=== PATIENT | female | born 1955 | race Caucasian/White ===

== ENCOUNTER → 2018-07-12 13:08 | Outpatient (CLI) | payer OTHER, SELFPAY ==
--- NOTE | 2018-07-12 | DI.MG.S_ITS ---
BILATERAL DIGITAL SCREENING MAMMOGRAM 3D/2D WITH CAD: 07/12/2018 CLINICAL: Routine screening. Family history of breast cancer. Comparison is made to exams dated: 07/17/2016 mammogram, 07/15/2015 mammogram, and 10/13/2005 mammogram - [facility]. The tissue of both breasts is predominantly fatty. Current study was also evaluated with a Computer Aided Detection (CAD) system. No significant masses, calcifications, or other findings are seen in either breast. There has been no significant interval change. IMPRESSION: NEGATIVE There is no mammographic evidence of malignancy. A 1 year screening mammogram is recommended. This exam was interpreted at Station ID: [id number]. NOTE: For mammograms, a report in lay terms will be sent to the patient. Approximately 15% of breast malignancies will not be visualized mammographically. In the management of a palpable breast mass, a negative mammogram must not discourage biopsy of a clinically suspicious lesion. Electronically Signed By: Selena corbin/anastacia:07/12/2018 15:54:37 letter sent: Normal Exam ACR BI-RADS Category 1: Negative [id number]
== END ==
PROVIDERS: PCP Physician Assistant; Visit Provider Physician Assistant
DX: Z12.31 Encounter for screening mammogram for malignant neoplasm of breast (principal); Z80.3 Family history of malignant neoplasm of breast
CPT/HCPCS: 77063; 77067

== ENCOUNTER → 2018-10-11 09:55 | Outpatient (CLI) | payer OTHER, SELFPAY | PROVIDERS: PCP Internal Medicine; Visit Provider Physician Assistant | DX: M85.851 Other specified disorders of bone density and structure, right thigh (principal); Z78.0 Asymptomatic menopausal state; Z82.62 Family history of osteoporosis; Z87.891 Personal history of nicotine dependence | CPT/HCPCS: 77080; 77081 ==

== ENCOUNTER → 2020-05-07 10:33 | Outpatient (CLI) | payer OTHER, SELFPAY ==
--- NOTE | 2020-05-07 | DI.RAD.S_ITS ---
PROCEDURE: XR WRIST RT MIN 3V INDICATIONS: right wrist pain TECHNIQUE: 4 views of the wrist were acquired. COMPARISON: None. FINDINGS: Bones: No fractures or dislocations. No suspicious bony lesions. Mild degenerative joint disease at the triscaphe joint, 1st carpometacarpal joint, 1st metacarpophalangeal joint and 1st interphalangeal joint. Scaphoid view: Scaphoid is intact. Soft tissues: No suspicious soft tissue calcifications. IMPRESSION: Mild degenerative joint disease. Dictated by: Carolina Savage M.D. on 05/07/2020 at 17:38 Approved by: Carolina Savage M.D. on 05/07/2020 at 17:40
== END ==
PROVIDERS: PCP Internal Medicine; Referring Provider Student in an Organized Health Care Education/Training Program; Visit Provider Student in an Organized Health Care Education/Training Program
DX: M25.531 Pain in right wrist (principal); M19.031 Primary osteoarthritis, right wrist
CPT/HCPCS: 73110

== ENCOUNTER → 2020-11-30 11:38 | Outpatient (CLI) | payer OTHER, SELFPAY ==
--- NOTE | 2020-11-30 11:43 | DI.RAD.S_ITS ---
PROCEDURE: XR HIP W PEL IF DONE LT 2V INDICATIONS: LT HIP PAIN/DYSPNEA TECHNIQUE: AP pelvis with lateral view(s) of the left hip(s). COMPARISON: [facility], , HIP 2V LEFT, 01/08/2013, 9:57. FINDINGS: Bones: Patient is status post prior fixation of left proximal femur with intramedullary lj and dynamic screw in place. No gross hardware loosening or failure. No acute fractures or dislocations. Mild to moderate bilateral hip joint osteoarthritis is seen slightly worse on the left side. No evidence of avascular necrosis of femoral head. Pelvic ring appears intact. No suspicious bony lesions. Soft tissues: The visualized bowel gas pattern is normal. No suspicious soft tissue calcifications. IMPRESSION: Prior fixation of left femoral shaft with healed proximal femoral shaft fracture. No gross hardware complication. Left worse than right bilateral hip joint osteoarthritis. No evidence of avascular necrosis of femoral head. Dictated by: Onesimo West M.D. on 11/30/2020 at 14:51 Approved by: Onesimo West M.D. on 11/30/2020 at 14:52
--- NOTE | 2020-11-30 11:43 | DI.RAD.S_ITS ---
PROCEDURE: XR CHEST 2V INDICATIONS: Dyspnea TECHNIQUE: 2 views of the chest were acquired. COMPARISON: None. FINDINGS: Surgical changes and devices: None. Lungs and pleura: Lungs are clear. No pleural effusions or pneumothorax. Mediastinum: Mediastinal contours are normal. Heart size is normal. Bones and chest wall: No suspicious bony abnormalities. Soft tissues appear unremarkable. IMPRESSION: No acute cardiopulmonary process demonstrated radiographically. Dictated by: Alexander Reynolds M.D. on 11/30/2020 at 13:21 Approved by: Alexander Reynolds M.D. on 11/30/2020 at 13:22
[2020-11-30 13:30] LABS: Vitamin D 25 Hydroxy (D3) 46.8 ng/mL (30.0-100.0)
== END ==
PROVIDERS: PCP Internal Medicine; Referring Provider Student in an Organized Health Care Education/Training Program; Visit Provider Student in an Organized Health Care Education/Training Program
DX: M25.552 Pain in left hip (principal); M16.0 Bilateral primary osteoarthritis of hip; R06.00 Dyspnea, unspecified
CPT/HCPCS: 36415; 71046; 73502; 82306

== ENCOUNTER → 2021-05-23 08:01 | Outpatient (CLI) | payer OTHER, SELFPAY ==
[2021-05-23 09:31] LABS: Hemoglobin 14.3 g/dL (12.0-16.0); Mean Corpuscular HGB Conc 34.1 % (30-36); Mean Corpuscular Hemoglobin 30.5 PG (26-34); Mean Corpuscular Volume 89.6 fL (80-100); Platelet Count 232 X10^3/uL (150-400); Red Blood Cell Count 4.69 X10^6/uL (4.0-5.2); Red Cell Distribution Width 13.4 % (11.6-14.8)
[2021-05-23 09:40] LABS: Alanine Aminotransferase 51 IU/L (<35); Albumin 4.1 g/dL (3.5-5.0); Albumin Globulin Ratio 1.5 (1.0-2.8); Alkaline Phosphatase 78 U/L (38-126); Aspartate Aminotransferase 32 IU/L (14-36); BUN Creatinine Ratio 13.9 (6-22); Bilirubin Total 0.6 mg/dL (0.2-1.3); Blood Urea Nitrogen 10 mg/dL (7-17); Calcium 9.4 mg/dL (8.4-10.2); Carbon Dioxide 26 mmol/L (22-32); Chloride 105 mmol/L (98-107); Cholesterol 172 mg/dL (140-199); Estimated Glomerular Filt Rate > 60.0 mL/min (>60); Globulin 2.7 g/dL (1.7-4.1); Glucose 104 mg/dL (80-110); HDL Cholesterol 50 mg/dL (40-60); HEMOLYSIS < 15 (0-50); LDL Cholesterol Calculated 100 mg/dL (<100); Potassium 4.1 mmol/L (3.4-5.1); Sodium 139 mmol/L (137-145); Total Protein 6.8 g/dL (6.3-8.2); Triglycerides 110 mg/dL (35-150)
[2021-05-23 15:58] LABS: Hep C Virus Ab w/Reflex Quant NEGATIVE s/c (NEGATIVE)
== END ==
PROVIDERS: PCP Family Medicine; Referring Provider Student in an Organized Health Care Education/Training Program; Visit Provider Student in an Organized Health Care Education/Training Program
DX: Z11.59 Encounter for screening for other viral diseases (principal)
CPT/HCPCS: 36415; 80053; 80061; 85027; 86803

== ENCOUNTER → 2021-07-18 12:53 | Outpatient (CLI) | payer OTHER, SELFPAY ==
[2021-07-18 15:45] LABS: Alanine Aminotransferase 42 IU/L (<35); Albumin 4.8 g/dL (3.5-5.0); Albumin Globulin Ratio 1.8 (1.0-2.8); Alkaline Phosphatase 82 U/L (38-126); Aspartate Aminotransferase 32 IU/L (14-36); BUN Creatinine Ratio 15.1 (6-22); Bilirubin Total 0.9 mg/dL (0.2-1.3); Blood Urea Nitrogen 11 mg/dL (7-17); C-Reactive Protein Quant < 0.5 mg/dL (<1.0); Calcium 9.7 mg/dL (8.4-10.2); Carbon Dioxide 27 mmol/L (22-32); Chloride 103 mmol/L (98-107); Estimated Glomerular Filt Rate > 60.0 mL/min (>60); Globulin 2.7 g/dL (1.7-4.1); Glucose 96 mg/dL (80-110); HEMOLYSIS < 15 (0-50); Potassium 4.1 mmol/L (3.4-5.1); Sodium 137 mmol/L (137-145); Total Protein 7.5 g/dL (6.3-8.2)
[2021-07-18 15:57] LABS: Free T3, Triiodothyronine Free 3.24 pg/mL (2.77-5.27); Free T4, Direct Thyroxine 1.06 ng/dL (0.78-2.19)
[2021-07-18 16:10] LABS: Thyroid Stimulating Hormone 1.28 uIU/mL (0.47-4.68)
[2021-07-18 16:17] LABS: Ferritin 61 ng/mL (11-264)
[2021-07-18 16:43] LABS: Vitamin D 25 Hydroxy (D3) 47.9 ng/mL (30.0-100.0)
[2021-07-19 18:50] LABS: Anti Thyroglobulin Antibody <1.0 IU/mL (0.0-0.9); Thyroid Peroxidase Antibodies <8 IU/mL (0-34)
[2021-07-22 10:21] LABS: Percent Free Testosterone 1.56 % (0.50-2.80); Testosterone Total 32.2 ng/dL (7.0-40.0)
[2021-07-28 18:03] LABS: % Free Progesterone 2.7 % (.); Free Progesterone <0.27 ng/dL (.); Progesterone, Serum <10 ng/dL (.)
== END ==
PROVIDERS: PCP Family Medicine; Referring Provider Family Medicine; Visit Provider Family Medicine
DX: E55.9 Vitamin D deficiency, unspecified (principal); F41.9 Anxiety disorder, unspecified; F51.04 Psychophysiologic insomnia; R42 Dizziness and giddiness; Z13.29 Encounter for screening for other suspected endocrine disorder; Z86.2 Personal history of diseases of the blood and blood-forming organs and certain disorders involving the immune mechanism
CPT/HCPCS: 36415; 80053; 82306; 82627; 82728; 84144; 84402; 84403; 84439; 84443; 84481; 84999; 86140; 86376; 86800

== ENCOUNTER → 2021-10-26 09:26 | Outpatient (CLI) | payer OTHER, SELFPAY ==
[2021-10-26 11:40] LABS: Alanine Aminotransferase 23 IU/L (<35); Albumin 4.6 g/dL (3.5-5.0); Albumin Globulin Ratio 1.6 (1.0-2.8); Alkaline Phosphatase 77 U/L (38-126); Aspartate Aminotransferase 29 IU/L (14-36); Bilirubin Total 1.1 mg/dL (0.2-1.3); Blood Urea Nitrogen 12 mg/dL (7-17); C-Reactive Protein Quant < 0.5 mg/dL (<1.0); Calcium 9.3 mg/dL (8.4-10.2); Carbon Dioxide 29 mmol/L (22-32); Chloride 103 mmol/L (98-107); Estimated Glomerular Filt Rate > 60 mL/min (>60); Gamma Glutamyl Transpeptidase 14 U/L (12-43); Globulin 2.9 g/dL (1.7-4.1); Glucose 104 mg/dL (80-110); HEMOLYSIS < 15 (0-50); Potassium 4.1 mmol/L (3.4-5.1); Sodium 138 mmol/L (137-145); Total Protein 7.5 g/dL (6.3-8.2)
[2021-10-26 11:54] LABS: Vitamin D 25 Hydroxy (D3) 60.4 ng/mL (30.0-100.0)
[2021-10-26 12:12] LABS: Ferritin 56 ng/mL (11-264)
== END ==
PROVIDERS: PCP Family Medicine; Referring Provider Family Medicine; Visit Provider Family Medicine
DX: D89.40 Mast cell activation, unspecified (principal); E55.9 Vitamin D deficiency, unspecified; G43.909 Migraine, unspecified, not intractable, without status migrainosus; Z77.120 Contact with and (suspected) exposure to mold (toxic); Z86.2 Personal history of diseases of the blood and blood-forming organs and certain disorders involving the immune mechanism
CPT/HCPCS: 36415; 80053; 82306; 82728; 82977; 86140; 86160

== ENCOUNTER → 2021-11-07 13:40 | Outpatient (CLI) | payer OTHER, MEDICARE, SELFPAY ==
[2021-11-07 15:39] LABS: COVID19 -Nasal RAPID Negative (Negative)
== END ==
PROVIDERS: PCP Family Medicine; Visit Provider Surgery
DX: Z20.822 Contact with and (suspected) exposure to COVID-19 (principal); Z01.812 Encounter for preprocedural laboratory examination
CPT/HCPCS: 87635; C9803

== ENCOUNTER 2021-11-08 07:05 | Day surgery (SDC) | payer OTHER, SELFPAY ==
--- NOTE | 2021-11-08 | PATH_ITS ---
[facility] Accession Number: [id number] . 01 Material submitted: . cecum - CECAL COLON POLYP . 01 Diagnosis: Cecal Polyp, Biopsy: Tubular adenoma. MRV 11/11/2021 1228 Local . 01 Electronically signed: . Delmar Simmons MD, PhD, Pathologist NPI- [id number] . 01 Gross description: . CECAL COLON POLYP: Received in formalin is 1 fragment(s) of dozier, soft tissue measuring 0.4 x 0.2 x 0.1 cm submitted entirely in 1 cassette(s) /MWS 11/09/2021 0725 Local . 01 Pathologist provided ICD-10: D12.0 . 01 CPT . 177823 Performed at: 01 [facility] [address] [place] [address] [id number] MD Jose Armando Sanders MD Phone: [phone]
[2021-11-08 07:32] VITALS: BP 94/65; PULSE 79; RESP 16; TEMP 36.4; O2SAT 98; BMI 32.6
[2021-11-08] MEDS: LACTATED RINGERS 1,000 ML 42 ML IV (07:53)
--- NOTE | 2021-11-08 08:16 | PM.HP.1 ---
History of Present Illness History of Present Illness Date Patient Seen: 11/08/21 Time Patient Seen: 08:16 Chief complaint: SDC Narrative: The patient presents for colorectal screening. She has a personal history of colonic polyps, last colonoscopy 5 years ago.. No personal or family history of colon cancer. On further history denies any recent gastrointestinal symptoms. No nausea, vomiting, abdominal pain, loss of appetite, unexplained weight loss, change in bowel habits, diarrhea, constipation, melena, hematochezia, or bright red blood per rectum. Patient History Medical History Anxiety (~2009) Cervical somatic dysfunction Chicken pox (~1959) Chronic back pain (~1997) Cranial somatic dysfunction Depression (~1999) Fractures (~2010) Headache Hearing loss Insomnia Mast cell activation syndrome Measles (~1961) Medication adverse effect Migraines Mold exposure Nausea alone Obstructive sleep apnea Plantar fasciitis, bilateral Screening for thyroid disorder Stiff neck Thoracic region somatic dysfunction Tinnitus Upper extremity somatic dysfunction Vertigo Vitamin D deficiency Surgical History Anesthesia History of cataract removal with insertion of prosthetic lens (~2018) History of ear surgery (~1960) History of hip surgery (~2010) History of knee surgery (~2013) History of tonsillectomy (~1960) Family & Social History Family History Mother Cancer Diabetes mellitus Hypertension Brother Diabetes mellitus COPD (chronic obstructive pulmonary disease) Grandfather Diabetes mellitus Social History: household members spouse Tobacco & Substance use: Smoking Status Former smoker alcohol intake former Substance Use Type does not use Meds Home Medications and Allergies Home Medications Medication Instructions Recorded Confirmed Type famotidine 20 mg tablet (Pepcid) 20 mg PO DAILY 03/30/21 11/08/21 History loratadine 10 mg tablet (Claritin) 10 mg PO DAILY 03/30/21 11/08/21 History ondansetron 4 mg disintegrating 4 mg PO Q8H PRN nausea and 05/31/21 11/08/21 Rx tablet vomiting #14 tabs alprazolam 0.5 mg tablet 0.5 mg PO BID PRN anxiety #20 tabs 10/11/21 11/08/21 Rx Allergies Allergy/AdvReac Type Severity Reaction Status Date / Time ASPIRIN Allergy Severe ANAPHALAXIS Uncoded 11/08/21 07:26 NIACIN Allergy Severe THROAT Uncoded 07/29/21 10:24 SWELLING ADHESIVE TAPE Allergy Mild RASH Uncoded 07/29/21 10:24 COBAN Allergy Mild RASH Uncoded 07/29/21 10:24 LACTOSE Allergy Mild DIARRHEA Uncoded 07/29/21 10:24 Exam Vital Signs (past 8 hours): - 11/08/21 07:32 Temperature 97.5 F L Pulse Rate 79 Respiratory Rate 16 Blood Pressure 94/65 Pulse Oximetry 98 Oxygen Delivery Method Room Air Oxygen Delivery Method Room Air Narrative Exam Narrative: General adult woman alert oriented no acute distress Chest nonlabored respirations Extremities warm well perfused Assessment & Plan Assessment & Plan narrative: The patient requires colorectal screening and colonoscopy is recommended. Technical details were discussed. Risks, benefits, alternatives explained. Risks including but not limited to myocardial infarction, aspiration, bleeding, pain, missed lesion, incomplete examination, need for further radiographic studies, colonic perforation, and need for major abdominal surgery were discussed. All questions were answered to their satisfaction, and they are in agreement with this plan. Time Spent With Patient Critical Care time: I spent a total of [] minutes of critical care time on this patient's care today; this time is exclusive of procedural time.
[2021-11-08] MEDS: MIDAZOLAM 2 MG/2 ML VIAL 7 MG IV (08:38)
[2021-11-08] MEDS: fentaNYL 250 MCG/5 ML INJ 200 MCG IV (08:38)
--- NOTE | 2021-11-08 08:49 | P.OP.COLON_ITS ---
Operative Date/Time/Diagnoses Date of procedure: 11/08/21 Time of procedure: 08:49 Pre-op diagnosis: Personal history of colonic polyps Post-op diagnosis: same Procedure & Clinicians Study performed: Colonoscopy and polypectomy Same procedure as scheduled: Yes Indications: Personal history of colonic polyps Surgeon: Chris Duong Procedure Notes Procedure in detail: Medications: Conscious sedation using 7mg IV midazolam and 200mcg IV of f entanyl The history and physical was performed/updated and the patient is ASA class is 2. The procedure was discussed in detail with the patient. Potential risks complications including infection, bleeding, missed diagnosis, perforation, need for surgery, and were explained. Their questions were answered and informed consent was obtained. Patient was brought to the procedure room and placed standard monitoring equipment. The patient's vital signs were monitored continuously throughout the entire procedure. Prior to starting time-out was performed. The patient was placed in the left lateral recumbent position. Procedural sedation was administered. Examination began with a thorough inspection of the perianal area there was no evidence of fissures, fistulae, external hemorrhoids or cutaneous malignancy. The colonoscopy scope was then placed into the anal canal and was advanced to the cecum, which was identified by the ileocecal valve, the appendiceal orifice and the confluence of the taenia. The scope was then slowly withdrawn examining colon thoroughly in all directions, irrigating it of any residual stool. FINDINGS 1. Ascending colon- 5 mm polyp removed with biopsy forceps 2. Internal hemorrhoids The patient tolerated the procedure well. They will be discharged once criteria are met. The prep was of good/excellent quality. The withdrawl time was 6 minutes. The sedation time was 16 minutes. Specimen(s): other (Ascending colon) Complications: none Impression: Colonic polyp Post-procedure Recommendations: Colonoscopy in 5 years Disposition: same day surgery
[2021-11-08 08:55] VITALS: BP 110/66; PULSE 74; RESP 16; TEMP 36.4; O2SAT 96
[2021-11-08 09:00] VITALS: BP 103/66; PULSE 71; RESP 11; TEMP 36; O2SAT 97
[2021-11-08 09:05] VITALS: BP 109/60; PULSE 80; RESP 18; TEMP 36.1; O2SAT 99
[2021-11-08 09:16] VITALS: BP 106/60; PULSE 80; RESP 23; TEMP 36.1; O2SAT 100
== END 2021-11-08 09:24 | disposition home or self-care (01) ==
PROVIDERS: PCP Family Medicine; Referring Provider Surgery; Visit Provider Surgery
PROC: 0DJD8ZZ Inspection of Lower Intestinal Tract, Via Natural or Artificial Opening Endoscopic (ICD-10-PCS; CPT 45378; principal; 2021-11-08 08:15)
DX: Z12.11 Encounter for screening for malignant neoplasm of colon (principal); D12.0 Benign neoplasm of cecum; K64.8 Other hemorrhoids; F41.9 Anxiety disorder, unspecified; G47.33 Obstructive sleep apnea (adult) (pediatric); Z86.010 Personal history of colon polyps; Z87.891 Personal history of nicotine dependence
CPT/HCPCS: 45380; 99152; J2250; J3010

== ENCOUNTER → 2021-12-27 11:55 | Outpatient (CLI) | payer OTHER, SELFPAY ==
[2021-12-27 14:06] LABS: Alanine Aminotransferase 26 IU/L (<35); Albumin 4.4 g/dL (3.5-5.0); Albumin Globulin Ratio 1.6 (1.0-2.8); Alkaline Phosphatase 68 U/L (38-126); Aspartate Aminotransferase 25 IU/L (14-36); BUN Creatinine Ratio 12.2 (6-22); Bilirubin Total 0.8 mg/dL (0.2-1.3); Blood Urea Nitrogen 10 mg/dL (7-17); Calcium 9.3 mg/dL (8.4-10.2); Carbon Dioxide 30 mmol/L (22-32); Chloride 101 mmol/L (98-107); Estimated Glomerular Filt Rate > 60 mL/min (>60); Globulin 2.7 g/dL (1.7-4.1); Glucose 76 mg/dL (80-110); HEMOLYSIS < 15 (0-50); Potassium 4.7 mmol/L (3.4-5.1); Sodium 139 mmol/L (137-145); Total Protein 7.1 g/dL (6.3-8.2)
== END ==
PROVIDERS: PCP Family Medicine; Referring Provider Family Medicine; Visit Provider Family Medicine
DX: Z13.9 Encounter for screening, unspecified (principal); T50.905A Adverse effect of unspecified drugs, medicaments and biological substances, initial encounter
CPT/HCPCS: 36415; 80053

== ENCOUNTER → 2022-02-01 15:21 | Outpatient (CLI) | payer OTHER, SELFPAY ==
[2022-02-04 14:08] LABS: ANA Screen, IFA Negative (.)
== END ==
PROVIDERS: PCP Family Medicine; Referring Provider Family Medicine; Visit Provider Family Medicine
DX: R21 Rash and other nonspecific skin eruption (principal)
CPT/HCPCS: 36415; 86038

== ENCOUNTER → 2023-06-11 07:52 | Outpatient (CLI) | payer OTHER, SELFPAY ==
[2023-06-11 08:52] LABS: Add Manual Diff / Slide Review NO; Basophils Absolute Auto 0 /uL (0-100); Basophils Percent Auto 0.9 % (0-2); Eosinophils Absolute Auto 300 /uL (0-450); Eosinophils Percent Auto 5.9 % (2-4); Hematocrit 43.4 % (36-46); Hemoglobin 14.5 g/dL (12.0-16.0); Lymphocytes Absolute Auto 1500 /uL (1100-4500); Lymphocytes Percent Auto 32.3 % (25-40); Mean Corpuscular HGB Conc 33.3 % (30-36); Mean Corpuscular Hemoglobin 29.9 PG (26-34); Mean Corpuscular Volume 89.6 fL (80-100); Monocytes Absolute Auto 400 /uL (0-900); Monocytes Percent Auto 8.3 % (3-14); Neutrophils Absolute Auto 2500 /uL (1500-7000); Neutrophils Percent Auto 52.6 % (50-75); Platelet Count 232 X10^3/uL (150-400); Red Blood Cell Count 4.84 X10^6/uL (4.0-5.2); Red Cell Distribution Width 14.2 % (11.6-14.8); White Blood Cell Count 4.8 X10^3/uL (4.5-11.0)
[2023-06-11 09:08] LABS: Alanine Aminotransferase 37 IU/L (<35); Albumin 4.3 g/dL (3.5-5.0); Albumin Globulin Ratio 1.3 (1.0-2.8); Alkaline Phosphatase 74 U/L (38-126); Aspartate Aminotransferase 35 IU/L (14-36); BUN Creatinine Ratio 14.5 (6-22); Blood Urea Nitrogen 9 mg/dL (7-17); Calcium 9.7 mg/dL (8.4-10.2); Carbon Dioxide 25 mmol/L (22-32); Chloride 105 mmol/L (98-107); Cholesterol 267 mg/dL (140-199); Estimated Glomerular Filt Rate > 60 mL/min (>60); Globulin 3.2 g/dL (1.7-4.1); Glucose 100 mg/dL (80-110); HDL Cholesterol 68 mg/dL (40-60); HEMOLYSIS 19 (0-50); LDL Cholesterol Calculated 169 mg/dL (<100); Potassium 4.1 mmol/L (3.4-5.1); Sodium 138 mmol/L (137-145); Total Protein 7.5 g/dL (6.3-8.2); Triglycerides 148 mg/dL (35-150)
[2023-06-11 09:39] LABS: Hemoglobin A1C% w Est Avg Glu 5.1 % (4.0-6.0)
[2023-06-11 09:48] LABS: Vitamin D 25 Hydroxy (D3) 56.5 ng/mL (30.0-100.0)
[2023-06-11 09:54] LABS: Vitamin B12 564 pg/mL (239-931)
== END ==
PROVIDERS: PCP Family Medicine; Referring Provider Family Medicine; Visit Provider Family Medicine
DX: D89.40 Mast cell activation, unspecified (principal); M79.2 Neuralgia and neuritis, unspecified; E55.9 Vitamin D deficiency, unspecified; Z13.220 Encounter for screening for lipoid disorders
CPT/HCPCS: 36415; 80053; 80061; 82306; 82607; 83036; 85025

== ENCOUNTER → 2023-07-31 08:50 | Outpatient (CLI) | payer OTHER, SELFPAY ==
[2023-07-31 10:16] LABS: C-Reactive Protein Quant < 0.5 mg/dL (<1.0)
[2023-08-01 12:12] LABS: Homocysteine 13.4 umol/L (0.0-17.2)
[2023-08-01 14:15] LABS: Cholesterol,Total 254
[2023-08-01 14:16] LABS: HDL Cholesterol 65
[2023-08-01 14:19] LABS: Non-HDL Cholesterol 189
[2023-08-01 14:20] LABS: Triglycerides 159
== END ==
LOC: LAB 08:51
PROVIDERS: PCP Family Medicine; Referring Provider Family Medicine; Visit Provider Family Medicine
DX: E78.00 Pure hypercholesterolemia, unspecified (principal); R09.89 Other specified symptoms and signs involving the circulatory and respiratory systems; Z91.89 Other specified personal risk factors, not elsewhere classified
CPT/HCPCS: 36415; 80061; 83090; 83704; 83721; 86140

== ENCOUNTER → 2023-09-11 12:48 | Outpatient (CLI) | payer OTHER, SELFPAY ==
--- NOTE | 2023-09-11 14:09 | DIET.OUTPTC ---
Dietary Outpatient Consultation Note Consultation Date: 09/11/2023 Assessment: 68 y F referred to dietitian for weight management. Mary Lou is looking for help with continuing to improve her cholesterol, lower added sugars in diet, and weight management. Reports she recently cut out nightshade containing foods to manage adverse reactions. Has previously been on the No BS weight loss plan (an intuitive eating style plan) and lost weight successful on that ~2 yr ago, but reports gaining the weight back. Diet recall: 1030-11a: B-2-3 c coffee, eggs and whole grain toast and 1 tbsp stick butter OR Eric's breakfast or hamburger or chicken nuggets and regular sized coke Starbucks: Coffee drink with non dairy soy or oat milk and pastry 4-5p: chicken noodle soup and grilled cheese sandwich OR hummus and crackers/chips and salad Dessert: cookies/Popsicle Beverages: Reports either coke or starbucks drink daily and between 1-4 24 oz bottles of water Allergies: Nightshade, milk/yogurt GI symptoms: acid reflux/heartburn if eats too late in evening Activity: Avg of 3x/wk water aerobics 45 mins (135 mins/wk mod intense activity) Ht: 5 ft 8 in Wt: 225 lb and 6 oz (102.228 kg) BMI: 34.2 Weight History: 08/20/23: 102.228 kg 06/08/23: 103.532 kg 11/01/22: 103.646 kg Nutrition Diagnosis: Nutrition related knowledge deficit r/t to no previous educ as evidenced by assessment Interventions: 1. Provided MNT for weight management and lipid management -including: balanced meals, recommended amounts of daily grams of saturated fat and sugar, label reading Goals: 1. Record SFA and added sugar intake and compare against reccs provided 2. Switch from stick butter to tub butter with olive oil or olive oil for toast and cooking 3. Adequate protein and fiber intake -in progress EER: HIJ baseline with 1.2 AF = 7675-9308 kcals/day (1600 kcals w/ 250 kcal deficit) *calories only used for calculation of SFA and added sugars per pt interest Saturated fat: 12-14 g saturated fat for 7% of EER Added sugars: 40-45 g added sugar for 10% of EER Protein: 80-85 g protein/day (1 g protein/kg of adjusted IBW) Monitoring/Evaluations: diet recall, SFA and added sugar intake, goals, f/u 1 month Electronically Signed by: Corinne Loyd 09/11/23 14:09 Clinical Dietitian [address] [address]
== END ==
PROVIDERS: PCP Family Medicine; Referring Provider Family Medicine
DX: E66.9 Obesity, unspecified (principal); Z71.3 Dietary counseling and surveillance; Z68.34 Body mass index [BMI] 34.0-34.9, adult; K21.9 Gastro-esophageal reflux disease without esophagitis
CPT/HCPCS: 97802

== ENCOUNTER 2023-10-10 18:27 | Emergency (ER) | payer OTHER, SELFPAY ==
[2023-10-10 18:36] VITALS: PULSE 97; RESP 16; TEMP 36.4; O2SAT 96
[2023-10-10 18:40] VITALS: BP 135/73
--- NOTE | 2023-10-10 18:40 | DI.US.S_ITS ---
PROCEDURE: US PERIPH VENOUS LOW EXTREM RT INDICATIONS: pain behind right knee and calf TECHNIQUE: Real-time imaging, as well as color and pulse Doppler interrogation, were performed of the lower extremity deep veins from the inguinal ligament to the popliteal fossa, with documentation of the visualized calf veins. COMPARISON: None. FINDINGS: The common femoral, femoral, popliteal, and the visualized calf veins are normally compressible, and free of intraluminal thrombus. Color and pulse Doppler demonstrate normal phasic intraluminal flow. There is normal augmentation response to distal compression maneuver. IMPRESSION: No findings of lower extremity deep venous thrombosis. Dictated by: Leticia Hagen M.D. on 10/10/2023 at 22:31 Approved by: Leticia Hagen M.D. on 10/10/2023 at 22:32
--- NOTE | 2023-10-10 23:00 | ED.EXTPRO ---
HPI - Extremity Problem General Chief complaint: Extremity Problem,Nontraumatic Stated complaint: rt leg pain, swelling Time Seen by Provider: 10/10/23 19:04 Source: patient Mode of arrival: Ambulatory History of Present Illness HPI Narrative: Patient is a 68-year-old female who is here for evaluation of the swelling to her right leg and discomfort that goes from the outside/back of her right hip down the back of her leg to her calf muscle. No chest pain. No shortness of breath. No trauma. She states that it is just a ?ache?. It is actually somewhat worse with walking. Related Data Previous Rx's Medication Instructions Recorded triamcinolone acetonide 0.1 % 1 applic topical DAILY PRN Vaginal 03/05/23 topical cream itching #30 grams eletriptan 40 mg tablet See Rx Instructions PO .COMPLEX 03/28/23 #20 tabs Allergies Allergy/AdvReac Type Severity Reaction Status Date / Time ibuprofen Allergy Severe Swelling Verified 10/10/23 18:40 of Lip/Tongue/Throat Solanum- Nightshade AdvReac Intermediate ITCHING Verified 10/10/23 18:39 Vegetables ASPIRIN Allergy Severe ANAPHALAXIS Uncoded 10/10/23 18:39 NIACIN Allergy Severe THROAT Uncoded 10/10/23 18:39 SWELLING ADHESIVE TAPE Allergy Mild RASH Uncoded 10/10/23 18:39 COBAN Allergy Mild RASH Uncoded 10/10/23 18:39 LACTOSE Allergy Mild DIARRHEA Uncoded 10/10/23 18:39 Review of Systems Constitutional Constitutional: Reports system reviewed and no additional complaints, except as documented Cardiovascular Cardiovascular: Reports system reviewed and no additional complaints, except as documented Respiratory Respiratory: Reports system reviewed and no additional complaints, except as documented Musculoskeletal Musculoskeletal: Reports system reviewed and no additional complaints, except as documented Integumentary/Breasts Skin/Breast: Reports system reviewed and no additional complaints, except as documented Patient History Medical History Cardiac symptoms with risk for coronary heart disease between 10% and 20% in next 10 years Pure hypercholesterolemia Generalized pruritus Peripheral neuropathic pain Malar rash Medication adverse effect Mast cell activation syndrome Mold exposure Upper extremity somatic dysfunction Thoracic region somatic dysfunction Screening for thyroid disorder Vitamin D deficiency Cervical somatic dysfunction Cranial somatic dysfunction Stiff neck Nausea alone Plantar fasciitis, bilateral Depression (~1999) Migraines Headache Fractures (~2010) Chronic back pain (~1997) Measles (~1961) Chicken pox (~1959) Vertigo Tinnitus Hearing loss Obstructive sleep apnea Insomnia Anxiety (~2009) Surgical History Anesthesia History of knee surgery (~2013) History of hip surgery (~2010) History of tonsillectomy (~1960) History of ear surgery (~1960) History of cataract removal with insertion of prosthetic lens (~2018) Family History Mother Cancer Diabetes mellitus Hypertension Brother Diabetes mellitus COPD (chronic obstructive pulmonary disease) Grandfather Diabetes mellitus Social History household members: spouse Smoking Status: Former smoker alcohol intake: former Smoking Status: Former smoker Substance Use Type: does not use Exam Initial Vital Signs Initial Vital Signs: Vital Signs Temperature 97.6 F 10/10/23 18:36 Pulse Rate 97 H 10/10/23 18:36 Respiratory Rate 16 10/10/23 18:36 Pulse Oximetry 96 10/10/23 18:36 Oxygen Delivery Method Room Air 10/10/23 18:36 Resp Effort & Inspection: normal respiratory effort Cardio Rate: regular rate Neuro Sensory Exam: no sensory deficits noted Extrem General: normal to inspection, capillary refill normal, edema and No limp Course Orders Ordered: ED Orders 10/10/23 18:40 US periph venous low extrem rt Stat Vital Signs Vital signs: Vital Signs - 8 hr 10/10/23 23:12 Pulse Rate 70 Respiratory Rate 16 Blood Pressure 123/65 Pulse Oximetry 95 Oxygen Delivery Method Room Air MDM - Extremity (Nontraumatic) Imaging Data US - DVT: Radiologist's Impression: PROCEDURE: US PERIPH VENOUS LOW EXTREM RT INDICATIONS: pain behind right knee and calf TECHNIQUE: Real-time imaging, as well as color and pulse Doppler interrogation, were performed of the lower extremity deep veins from the inguinal ligament to the popliteal fossa, with documentation of the visualized calf veins. COMPARISON: None. FINDINGS: The common femoral, femoral, popliteal, and the visualized calf veins are normally compressible, and free of intraluminal thrombus. Color and pulse Doppler demonstrate normal phasic intraluminal flow. There is normal augmentation response to distal compression maneuver. IMPRESSION: No findings of lower extremity deep venous thrombosis MDM Narrative Medical decision making narrative: Exam is not consistent with cellulitis. Not consistent with DVT. DVT ultrasound is negative. Her symptoms go from the right hip down to her foot. She has not having any back pain. I do suspect muscular. Discuss this with the patient. Discussed conservative treatment at home. She was given return precautions. She expressed understanding and agreement. Discharge Plan Departure Patient Disposition: Home Clinical Impression: Leg pain, right Instructions: DI for Leg Pain Activity Restrictions/Additional Instructions: You have no restrictions on your activities. I do recommend you try to stay as active as possible. You can take anti-inflammatory such as Motrin/ibuprofen for any discomfort. Contact your primary doctor for a follow-up. Prescriptions: No Action triamcinolone acetonide 0.1 % cream 1 applic topical DAILY PRN (Reason: Vaginal itching) Qty: 30 3RF eletriptan 40 mg tablet See Rx Instructions PO .COMPLEX Qty: 20 5RF Rx Instructions: take 1 tab at onset of headache; if no relief, may repeat 1 tab after at least 2 hrs; max = 2 tabs/24 hrs PO Referrals: Armin Mosqueda DO [Primary Care Provider] - Stand Alone Forms: Patient Portal/API
[2023-10-10 23:12] VITALS: BP 123/65; PULSE 70; RESP 16; O2SAT 95
== END 2023-10-10 23:18 | disposition home or self-care (01) ==
PROVIDERS: Emergency Provider Emergency Medicine; PCP Family Medicine
DX: M79.604 Pain in right leg (principal)
CPT/HCPCS: 93971; 99281; 99282

== ENCOUNTER → 2023-12-21 13:18 | Outpatient (CLI) | payer OTHER, SELFPAY ==
--- NOTE | 2023-12-21 13:19 | DI.MG.S_ITS ---
BILATERAL DIGITAL SCREENING MAMMOGRAM 3D/2D WITH CAD: 12/21/2023 CLINICAL: Routine screening. Family history of breast cancer. Comparison is made to exam dated: 09/05/2021 mammogram - [facility]. Both breasts are almost entirely fatty (category a/<25% glandular tissue). Current study was also evaluated with a Computer Aided Detection (CAD) system. No significant masses, calcifications, or other findings are seen in either breast. There has been no significant interval change. IMPRESSION: NEGATIVE There is no mammographic evidence of malignancy. A 1 year screening mammogram is recommended. Based on the Tyrer Cuzick model (a risk assessment model) the patient's lifetime risk is 7.2% and her 10 year risk is 4.2%. According to the ACR, ACS, and NCCN guidelines, an annual breast MRI exam along with mammogram is recommended if the patient's lifetime risk is 20% or greater. This exam was interpreted at Station ID: [id number]. NOTE: For mammograms, a report in lay terms will be sent to the patient. Approximately 15% of breast malignancies will not be visualized mammographically. In the management of a palpable breast mass, a negative mammogram must not discourage biopsy of a clinically suspicious lesion. Electronically Signed By: James pettit/anastacia:12/21/2023 16:25:29 letter sent: Normal Exam ACR BI-RADS Category 1: Negative 3341F
== END ==
PROVIDERS: PCP Family Medicine; Referring Provider Family Medicine; Visit Provider Family Medicine
DX: Z12.31 Encounter for screening mammogram for malignant neoplasm of breast (principal); Z80.3 Family history of malignant neoplasm of breast; R92.313 Mammographic fatty tissue density, bilateral breasts
CPT/HCPCS: 77063; 77067

== ENCOUNTER → 2024-08-26 14:52 | Outpatient (CLI) | payer OTHER, SELFPAY ==
--- NOTE | 2024-08-26 14:53 | DI.RAD.S_ITS ---
PROCEDURE: XR HIP W PEL IF DONE KATIE MIN 4V INDICATIONS: right hip pain - hx of OA (see XR from 2020) TECHNIQUE: AP pelvis with lateral view(s) of the left hip(s). [facility], 11/30/2020, 12:04. FINDINGS: Bones: Stable appearance of hardware within the left femoral neck and proximal femur status post open reduction internal fixation. No fractures or dislocations. Pelvic ring appears intact. No suspicious bony lesions. Soft tissues: The visualized bowel gas pattern is normal. No suspicious soft tissue calcifications. IMPRESSION: No evidence of hardware complication or acute bony abnormality status post ORIF. Dictated by: Jorgito Rubio M.D. on 08/27/2024 at 1:53 Approved by: Jorgito Rubio M.D. on 08/27/2024 at 1:54
== END ==
PROVIDERS: PCP Family Medicine; Referring Provider Physician Assistant; Visit Provider Physician Assistant
DX: M16.0 Bilateral primary osteoarthritis of hip (principal); Z98.890 Other specified postprocedural states
CPT/HCPCS: 73522

== ENCOUNTER → 2025-02-03 16:33 | Outpatient (CLI) | payer OTHER, SELFPAY ==
--- NOTE | 2025-02-03 16:36 | DI.RAD.S_ITS ---
PROCEDURE: XR CHEST 2V INDICATIONS: sob x 2 weeks TECHNIQUE: 2 views of the chest were acquired. COMPARISON: [facility], CR, XR CHEST 2V, 11/30/2020, 12:04. FINDINGS: Heart, mediastinum and pulmonary vascular: Heart is normal in size and configuration. Mediastinum is unremarkable. Pulmonary vascular is normal. Lungs: Scattered airspace disease in both lower lobes likely atelectasis Pleural spaces: Normal-no effusions or pneumothorax. Bones and soft tissues: Moderate compression fracture of the T9 vertebral body. Chronicity unknown. Mild compression fractures seen throughout remaining mid and lower thoracic vertebral bodies IMPRESSION: No acute cardiopulmonary disease Dictated by: Addison Alba M.D. on 02/04/2025 at 12:34 Approved by: Addison Alba M.D. on 02/04/2025 at 12:35
[2025-02-03 17:23] LABS: Add Manual Diff / Slide Review NO; Hematocrit 41.3 % (36-46); Hemoglobin 14.0 g/dL (12.0-16.0); Lymphocytes Absolute Auto 1400 /uL (1100-4500); Mean Corpuscular HGB Conc 33.9 % (30-36); Mean Corpuscular Hemoglobin 30.5 PG (26-34); Mean Corpuscular Volume 89.8 fL (80-100); Platelet Count 260 X10^3/uL (150-400)
[2025-02-03 18:06] LABS: Alanine Aminotransferase 28 IU/L (<35); Albumin 4.3 g/dL (3.5-5.0); Albumin Globulin Ratio 1.5 (1.0-2.8); Alkaline Phosphatase 91 U/L (38-126); Blood Urea Nitrogen 12 mg/dL (7-17); Calcium 9.3 mg/dL (8.4-10.2); Carbon Dioxide 27 mmol/L (22-32); Chloride 103 mmol/L (98-107); Estimated Glomerular Filt Rate > 60 mL/min (>60); Globulin 2.9 g/dL (1.7-4.1); Glucose 95 mg/dL (70-99); HEMOLYSIS < 15 (0-50); Potassium 4.2 mmol/L (3.4-5.1); Sodium 137 mmol/L (137-145); Total Protein 7.2 g/dL (6.3-8.2)
[2025-02-03 18:15] LABS: NT-proBNP (BNP-Adult 18+) 99 pg/mL (<125)
== END ==
PROVIDERS: PCP Family Medicine; Referring Provider Physician Assistant; Visit Provider Physician Assistant
DX: R06.02 Shortness of breath (principal)
CPT/HCPCS: 36415; 71046; 80053; 83880; 85025

== ENCOUNTER → 2025-02-18 14:39 | Outpatient (CLI) | payer OTHER, SELFPAY ==
--- NOTE | 2025-02-18 14:41 | DI.RAD.S_ITS ---
PROCEDURE: XR CERVICAL SPINE 2V OR 3V INDICATIONS: neck pain TECHNIQUE: 4 view(s) of the cervical spine were acquired. COMPARISON: None. FINDINGS: Bones: Degenerative changes of the cervical spine most prominent at C5-C6, where there is endplate sclerosis and prominent uncovertebral joint degeneration. No displaced fracture or traumatic malalignment of the level of C7. Soft tissues: No prevertebral soft tissue swelling. IMPRESSION: 1. No displaced fracture or traumatic subluxation. 2. Degenerative changes of the cervical spine most prominent at C5-C6. Dictated by: Alvaro Chou M.D. on 02/18/2025 at 21:01 Approved by: Alvaro Chou M.D. on 02/18/2025 at 21:03
--- NOTE | 2025-02-18 14:41 | DI.RAD.S_ITS ---
PROCEDURE: XR DEXA AXIAL SKELETON INDICATIONS: compression fractures COMPARISON: Merged With [facility], CR, XR DEXA AXIAL SKELETON, 10/11/2018, 10:37. FINDINGS: Lumbar Spine: Bone mineral density 0.978 g/cm2, T score -0.6, no statistical comparison can not be made due to differences technique/modality. Right Femoral Neck: Bone mineral density 0.691 g/cm2, T score -1.4. Right Hip: Bone mineral density 0.790 g/cm2, T score -1.2, no statistical comparison can not be made due to differences technique/modality. Fracture Risk Calculation (when applicable): 10-year fracture risk of a major osteoporotic fracture 23 percent and of a hip fracture 4.6 percent. (T score greater or equal to -1.0 to: NORMAL) (T score from -1.1 to -2.4: OSTEOPENIA) (T score less than or equal to -2.5: OSTEOPOROSIS) IMPRESSION: Osteopenia with high risk of fragility fracture given FRAX score greater than 20% Follow-up guidelines as follows: Osteoporosis: Consider a repeat DEXA and Vertebral Fracture Assessment (VFA) exam in 2 years or sooner if medically necessary, to reassess this patient's status. Osteopenia: Consider a repeat DEXA in 2-3 years to reassess this patient's status, or if there is a new clinical indication. Normal: Consider a repeat DEXA in 5 years or sooner, or if there is a new clinical indication. All treatment decisions require clinical judgment and consideration of individual patient factors, including patient preferences, comorbidities, previous drug use, risk factors not captured in the FRAX model (e.g., frailty, falls, vitamin D deficiency, increased bone turnover, interval significant decline in bone density ) and possible under- or over-estimation of fracture risk by FRAX. In addition, the NOF Guide recommends that FDA-approved medical therapies be considered in postmenopausal women and men age >= 50 years with a: * Hip or vertebral (clinical or morphometric) fracture * T-score of <=-2.5 at the spine or hip * Ten-year fracture probability by FRAX of >= 3% for hip fracture or >=20% for major osteoporotic fracture. Dictated by: Dakotah Enriquez M.D. on 02/18/2025 at 17:00 Approved by: Dakotah Enriquez M.D. on 02/18/2025 at 17:01
== END ==
LOC: RAD 14:40
PROVIDERS: PCP Family Medicine; Referring Provider Family Medicine; Visit Provider Family Medicine
DX: M85.851 Other specified disorders of bone density and structure, right thigh (principal); S22.000A Wedge compression fracture of unspecified thoracic vertebra, initial encounter for closed fracture; M47.812 Spondylosis without myelopathy or radiculopathy, cervical region; M54.2 Cervicalgia
CPT/HCPCS: 72040; 77080

== ENCOUNTER → 2025-04-15 12:42 | Outpatient (CLI) | payer OTHER, SELFPAY ==
--- NOTE | 2025-04-15 12:43 | DI.MG.S_ITS ---
MM screening mammo BI: 04/15/2025. BI-RADS: 1 CLINICAL: 69-year old female for bilateral screening mammogram. Tyrer-Cuzick lifetime risk of 9.8%. Current reported family history of breast cancer: mother. PRIOR EXAMS: 12/21/2023, 09/05/2021, 08/23/2020, 07/12/2018, 07/17/2016, 07/15/2015. MAMMOGRAPHY TECHNIQUE: 2D and 3D (tomosynthesis) digital mammographic views obtained, with additional images as needed for full coverage. Current study was also evaluated with a Computer Aided Detection (CAD) system. DENSITY B. There are scattered areas of fibroglandular density. MAMMOGRAPHY FINDINGS Bilateral: No suspicious mass, asymmetry, microcalcification, or other abnormality seen. IMPRESSION: * No evidence of malignancy. RECOMMENDATIONS Bilateral * Annual screening mammography. OVERALL ASSESSMENT CATEGORY BI-RADS-1: Negative. The [employer] recommends annual screening mammography beginning at age 40 for women with average risk of breast cancer. ELECTRONICALLY SIGNED: Johana Queen M.D. on 04/15/2025 at 03:25:23 PM PT Interpreting Station ID: [id number]
== END ==
LOC: MAMMO 12:42
PROVIDERS: PCP Family Medicine; Referring Provider Family Medicine; Visit Provider Family Medicine
DX: Z12.31 Encounter for screening mammogram for malignant neoplasm of breast (principal); Z80.3 Family history of malignant neoplasm of breast
CPT/HCPCS: 77063; 77067